=== PATIENT | female | born 1945 | race Caucasian/White ===

== ENCOUNTER 2020-09-21 06:03 | Inpatient (IN) | payer MEDICARE, MEDICAID ==
[~2020-09-21] VITALS: Ht 167.6 cm; Wt 77.1 kg
[~2020-09-21 06:03] MED LIST: ASPI-785 PO
[2020-09-21] MEDS ORDERED: VANCOMYCIN 1 G PREMIX 200 ML IV ONE (06:45)
[2020-09-21] MEDS ORDERED: PIPERACILLIN/TAZ 3.375G PREMIX 50 ML IV ONE (06:45)
[2020-09-21] MEDS ORDERED: DEXAMETHASONE 4MG/ML 1ML VIAL IV ONE (07:15)
[2020-09-21 07:24] LABS: BG BASE EXCESS 2.8 mmol/L (-2.0-2.0); BG CARBOXYHEMOGLOBIN 0.6 % (0.5-1.5); BG DEOXYHEMOGLOBIN 9.5 % (0.0-5.0); BG FRACTION INSPIRED OXYGEN 100; BG HCO3 ACT 25.5 mmol/L (22.0-26.0); BG METHEMOGLOBIN 0.2 % (0.0-1.5); BG OXYGEN SATURATION 90.4 % (92.0-98.5); BG OXYHEMOGLOBIN 89.7 % (94.0-97.0); BG PCO2 33.1 mmHg (35.0-45.0); BG PH 7.504 (7.350-7.450); BG PO2 54.7 mmHg (75.0-100.0); BG SAMPLE SITE RIGHT RADIAL; BG TOTAL HEMOGLOBIN 13.6 g/dL (12.0-18.0); BG VENT MODE MASK - NRB
[2020-09-21 07:26] LABS: HEMATOCRIT. 39.6 % (36.0-48.0); HEMOGLOBIN. 13.8 g/dL (12.0-16.0); MEAN CORPUSCULAR HEMOGLOBIN 33.8 pg (28.0-32.0); MEAN CORPUSCULAR VOLUME 97.1 fL (81.0-99.0); PLATELET 157 x1000/uL (130-400); RED BLOOD CELL COUNT 4.07 mill/uL (4.2-5.4); RED CELL DISTRIBUTION WIDTH 13.3 % (11.6-14.6)
[2020-09-21 07:31] LABS: CHLORIDE 89 mEq/L (98-107)
[2020-09-21 07:40] LABS: D-DIMER 0.72 mg/L FEU (<0.50); PROTHROMBIN TIME 10.8 sec (9.6-11.0)
[2020-09-21 07:43] LABS: CREATINE KINASE 214 IU/L (26-192)
[2020-09-21 08:11] LABS: PLATELET ESTIMATE NORMAL
[2020-09-21] MEDS ORDERED: ONDANSETRON HCL 4MG/2ML INJ IV PRN (09:00)
[2020-09-21] MEDS ORDERED: DIPHENHYDRAMINE 50MG/ML VIAL IV PRN (09:00)
[2020-09-21] MEDS ORDERED: CLONIDINE 0.1MG TABLET PO PRN (09:00)
[2020-09-21] MEDS: ENOXAPARIN 40MG/0.4ML SYR SUBCUT SCH (10:35)
[2020-09-21] MEDS: CEFTRIAXONE 1 G PREMIX 50 ML IV SCH (10:35)
[2020-09-21] MEDS: AZITHROMYCIN 500 MG in DEXT 5% WATER 250 ML IV SCH (10:59)
[2020-09-21 11:19] LABS: CLARITY URINE CLEAR (CLEAR); COLOR URINE YELLOW (YELLOW); KETONES URINE NEGATIVE (NEGATIVE); LEUKOCYTE ESTERASE URINE NEGATIVE (NEGATIVE); NITRITE URINE NEGATIVE (NEGATIVE); OCCULT BLOOD URINE 3+ (NEGATIVE); PH URINE 6.5 (4.5-8.0); PROTEIN URINE TRACE (NEGATIVE); SPECIFIC GRAVITY URINE 1.009 (1.005-1.030); UROBILINOGEN URINE 0.2 E.U./dL (0.2-1.0)
[2020-09-21] MEDS: DEXAMETHASONE 10 MG/ML VIAL IV SCH (15:18)
[2020-09-21] MEDS: PANTOPRAZOLE 40MG DR TABLET PO SCH (15:18)
[2020-09-22 04:12] LABS: HEMATOCRIT. 39.3 % (36.0-48.0); HEMOGLOBIN. 13.4 g/dL (12.0-16.0); MEAN CORPUSCULAR HEMOGLOBIN 33.2 pg (28.0-32.0); MEAN CORPUSCULAR VOLUME 97.5 fL (81.0-99.0); MEAN PLATELET VOLUME 9.9 fl (7.4-10.4); PLATELET 181 x1000/uL (130-400); RED BLOOD CELL COUNT 4.03 mill/uL (4.2-5.4); RED CELL DISTRIBUTION WIDTH 13.4 % (11.6-14.6)
[2020-09-22 04:19] LABS: CHLORIDE 95 mEq/L (98-107)
[2020-09-22 04:27] LABS: HDL CHOLESTEROL 45 mg/dL (40-59); LDL CHOLESTEROL 68 mg/dL (5-100)
[2020-09-22 06:45] LABS: PLATELET ESTIMATE NORMAL
[2020-09-22 08:28] LABS: T4 FREE 1.66 ng/dL (0.76-1.46)
[2020-09-22] MEDS: DEXAMETHASONE 10 MG/ML VIAL IV SCH (09:15)
[2020-09-22] MEDS: CEFTRIAXONE 1 G PREMIX 50 ML IV SCH (09:15)
[2020-09-22] MEDS: ENOXAPARIN 40MG/0.4ML SYR SUBCUT SCH (09:20)
[2020-09-22] MEDS: AZITHROMYCIN 500 MG in DEXT 5% WATER 250 ML IV SCH (09:45)
[2020-09-22] MEDS: ALBUTEROL 6.7GM HFA INHALER ORI SCH ×2 (16:50→22:01)
[2020-09-22] MEDS ORDERED: SODIUM CHLORIDE 0.9% 1,000 ML IV SCH (19:15)
[2020-09-23] MEDS: ALBUTEROL 6.7GM HFA INHALER ORI SCH ×4 (00:27→22:30)
[2020-09-23 00:46] LABS: CREATINE KINASE 163 IU/L (26-192)
[2020-09-23 00:47] LABS: CREATINE KINASE MB FRACTION < 1.0 ng/mL (0.5-3.6)
[2020-09-23 05:41] LABS: HEMATOCRIT. 40.5 % (36.0-48.0); HEMOGLOBIN. 13.8 g/dL (12.0-16.0); MEAN CORPUSCULAR HEMOGLOBIN 33.4 pg (28.0-32.0); MEAN PLATELET VOLUME 9.1 fl (7.4-10.4); PLATELET 215 x1000/uL (130-400); RED BLOOD CELL COUNT 4.13 mill/uL (4.2-5.4); RED CELL DISTRIBUTION WIDTH 13.5 % (11.6-14.6)
[2020-09-23 05:48] LABS: CHLORIDE 98 mEq/L (98-107)
[2020-09-23 06:01] LABS: CREATINE KINASE 168 IU/L (26-192)
[2020-09-23 06:03] LABS: CREATINE KINASE MB FRACTION < 1.0 ng/mL (0.5-3.6)
[2020-09-23] MEDS: PANTOPRAZOLE 40MG DR TABLET PO SCH (06:53)
[2020-09-23] MEDS: CEFTRIAXONE 1 G PREMIX 50 ML IV SCH (09:15)
[2020-09-23] MEDS: DEXAMETHASONE 10 MG/ML VIAL IV SCH (09:15)
[2020-09-23] MEDS: ENOXAPARIN 40MG/0.4ML SYR SUBCUT SCH (09:15)
[2020-09-23] MEDS: AZITHROMYCIN 500 MG in DEXT 5% WATER 250 ML IV SCH (09:45)
[2020-09-23 12:21] LABS: PLATELET ESTIMATE NORMAL
[2020-09-23 15:44] LABS: CLARITY URINE CLOUDY (CLEAR); COLOR URINE YELLOW (YELLOW); KETONES URINE TRACE (NEGATIVE); LEUKOCYTE ESTERASE URINE NEGATIVE (NEGATIVE); NITRITE URINE NEGATIVE (NEGATIVE); OCCULT BLOOD URINE NEGATIVE (NEGATIVE); PROTEIN URINE NEGATIVE (NEGATIVE); SPECIFIC GRAVITY URINE 1.017 (1.005-1.030); UROBILINOGEN URINE 0.2 E.U./dL (0.2-1.0)
[2020-09-23 16:13] LABS: SODIUM URINE RANDOM < 5 mEq/L
[2020-09-23 18:19] LABS: BG BASE EXCESS -0.7 mmol/L (-2.0-2.0); BG CARBOXYHEMOGLOBIN 0.1 % (0.5-1.5); BG DEOXYHEMOGLOBIN 3.3 % (0.0-5.0); BG FRACTION INSPIRED OXYGEN 60; BG HCO3 ACT 21.4 mmol/L (22.0-26.0); BG METHEMOGLOBIN 0.3 % (0.0-1.5); BG OXYGEN SATURATION 96.7 % (92.0-98.5); BG OXYHEMOGLOBIN 96.3 % (94.0-97.0); BG PCO2 28.7 mmHg (35.0-45.0); BG PH 7.491 (7.350-7.450); BG PO2 86.9 mmHg (75.0-100.0); BG TOTAL HEMOGLOBIN 14.1 g/dL (12.0-18.0); BG VENT MODE MASK - BIPAP
[2020-09-24 05:13] LABS: BASOPHILS % 0.2 % (0.0-2.0); HEMATOCRIT. 34.2 % (36.0-48.0); HEMOGLOBIN. 11.7 g/dL (12.0-16.0); LYMPHOCYTES % 8.2 % (20.0-50.0); MEAN CORPUSCULAR HEMOGLOBIN 33.7 pg (28.0-32.0); MEAN CORPUSCULAR VOLUME 98.1 fL (81.0-99.0); MEAN PLATELET VOLUME 8.7 fl (7.4-10.4); MONOCYTES % 7.6 % (2.0-8.0); PLATELET 247 x1000/uL (130-400); RED BLOOD CELL COUNT 3.48 mill/uL (4.2-5.4); RED CELL DISTRIBUTION WIDTH 13.3 % (11.6-14.6)
[2020-09-24 05:20] LABS: CHLORIDE 103 mEq/L (98-107)
[2020-09-24 05:25] LABS: PHOSPHORUS 1.8 mg/dL (2.5-4.9)
[2020-09-24] MEDS: ALBUTEROL 6.7GM HFA INHALER ORI SCH ×4 (08:33→23:59)
[2020-09-24] MEDS: AZITHROMYCIN 500 MG in DEXT 5% WATER 250 ML IV SCH (09:00)
[2020-09-24] MEDS: DEXAMETHASONE 10 MG/ML VIAL IV SCH (09:29)
[2020-09-24] MEDS: CEFTRIAXONE 1 G PREMIX 50 ML IV SCH (09:29)
[2020-09-24] MEDS: ENOXAPARIN 40MG/0.4ML SYR SUBCUT SCH (09:31)
[2020-09-24 16:09] LABS: BG BASE EXCESS 7.5 mmol/L (-2.0-2.0); BG CARBOXYHEMOGLOBIN 0.3 % (0.5-1.5); BG DEOXYHEMOGLOBIN 2.8 % (0.0-5.0); BG FRACTION INSPIRED OXYGEN 60; BG HCO3 ACT 31.1 mmol/L (22.0-26.0); BG METHEMOGLOBIN 0.3 % (0.0-1.5); BG OXYGEN SATURATION 97.2 % (92.0-98.5); BG OXYHEMOGLOBIN 96.6 % (94.0-97.0); BG PCO2 39.9 mmHg (35.0-45.0); BG PO2 90.4 mmHg (75.0-100.0); BG SAMPLE SITE LEFT RADIAL; BG TOTAL HEMOGLOBIN 12.4 g/dL (12.0-18.0); BG VENT MODE MASK - BIPAP
[2020-09-25 04:58] LABS: HEMATOCRIT. 34.3 % (36.0-48.0); HEMOGLOBIN. 11.9 g/dL (12.0-16.0); MEAN CORPUSCULAR HEMOGLOBIN 34.1 pg (28.0-32.0); MEAN CORPUSCULAR VOLUME 98.1 fL (81.0-99.0); RED BLOOD CELL COUNT 3.49 mill/uL (4.2-5.4); RED CELL DISTRIBUTION WIDTH 13.8 % (11.6-14.6)
[2020-09-25 04:59] LABS: CHLORIDE 106 mEq/L (98-107)
[2020-09-25 05:06] LABS: PHOSPHORUS 2.7 mg/dL (2.5-4.9)
[2020-09-25 08:17] LABS: PLATELET ESTIMATE NORMAL
[2020-09-25 08:18] LABS: MEAN PLATELET VOLUME 9.4 fl (7.4-10.4)
[2020-09-25 08:19] LABS: PLATELET 252 x1000/uL (130-400)
[2020-09-25] MEDS: ALBUTEROL 6.7GM HFA INHALER ORI SCH ×2 (08:25→20:05)
[2020-09-25] MEDS: CEFTRIAXONE 1 G PREMIX 50 ML IV SCH (09:00)
[2020-09-25] MEDS: ENOXAPARIN 40MG/0.4ML SYR SUBCUT SCH (09:00)
[2020-09-25] MEDS: DEXAMETHASONE 10 MG/ML VIAL IV SCH (09:00)
[2020-09-25] MEDS: AZITHROMYCIN 500 MG in DEXT 5% WATER 250 ML IV SCH (09:20)
[2020-09-25 10:20] LABS: BG BASE EXCESS 3.5 mmol/L (-2.0-2.0); BG CARBOXYHEMOGLOBIN 0.1 % (0.5-1.5); BG DEOXYHEMOGLOBIN 2.5 % (0.0-5.0); BG FRACTION INSPIRED OXYGEN 60; BG HCO3 ACT 27.1 mmol/L (22.0-26.0); BG METHEMOGLOBIN 0.2 % (0.0-1.5); BG OXYGEN SATURATION 97.5 % (92.0-98.5); BG OXYHEMOGLOBIN 97.2 % (94.0-97.0); BG PCO2 37.3 mmHg (35.0-45.0); BG PH 7.479 (7.350-7.450); BG PO2 100.2 mmHg (75.0-100.0); BG SAMPLE SITE LEFT BRACHIAL; BG TOTAL HEMOGLOBIN 12.2 g/dL (12.0-18.0); BG TOTAL RESPIRATORY RATE 28 b/min; BG VENT MODE MASK - BIPAP
[2020-09-26] VITALS (8 sets, daily range): BP systolic 106–141; BP diastolic 57–78
[2020-09-26] MEDS: ALBUTEROL 6.7GM HFA INHALER ORI SCH ×4 (00:12→20:37)
[2020-09-26 05:42] LABS: HEMATOCRIT. 34.1 % (36.0-48.0); HEMOGLOBIN. 11.7 g/dL (12.0-16.0); MEAN CORPUSCULAR HEMOGLOBIN 33.9 pg (28.0-32.0); MEAN CORPUSCULAR VOLUME 98.2 fL (81.0-99.0); MEAN PLATELET VOLUME 8.3 fl (7.4-10.4); PLATELET 244 x1000/uL (130-400); RED BLOOD CELL COUNT 3.47 mill/uL (4.2-5.4); RED CELL DISTRIBUTION WIDTH 13.9 % (11.6-14.6)
[2020-09-26 05:50] LABS: CHLORIDE 107 mEq/L (98-107)
[2020-09-26 05:55] LABS: PHOSPHORUS 2.6 mg/dL (2.5-4.9)
[2020-09-26 10:22] LABS: PLATELET ESTIMATE NORMAL
[2020-09-26] MEDS: ENOXAPARIN 40MG/0.4ML SYR SUBCUT SCH (14:18)
[2020-09-26] MEDS: DEXAMETHASONE 10 MG/ML VIAL IV SCH (14:18)
[2020-09-27] VITALS (8 sets, daily range): BP systolic 112–129; BP diastolic 53–86
[2020-09-27] MEDS: ALBUTEROL 6.7GM HFA INHALER ORI SCH ×4 (03:07→20:44)
[2020-09-27 07:02] LABS: HEMATOCRIT. 35.5 % (36.0-48.0); HEMOGLOBIN. 11.9 g/dL (12.0-16.0); MEAN CORPUSCULAR HEMOGLOBIN 33.5 pg (28.0-32.0); MEAN CORPUSCULAR VOLUME 99.7 fL (81.0-99.0); MEAN PLATELET VOLUME 8.2 fl (7.4-10.4); PLATELET 279 x1000/uL (130-400); RED BLOOD CELL COUNT 3.57 mill/uL (4.2-5.4)
[2020-09-27 07:03] LABS: CHLORIDE 110 mEq/L (98-107)
[2020-09-27 07:08] LABS: PHOSPHORUS 2.3 mg/dL (2.5-4.9)
[2020-09-27] MEDS ORDERED: POTASSIUM-SODIUM PHOSPHATE POWDER PACKET PO SCH (10:00)
[2020-09-27] MEDS: ENOXAPARIN 40MG/0.4ML SYR SUBCUT SCH (10:33)
[2020-09-27] MEDS: DEXAMETHASONE 10 MG/ML VIAL IV SCH (10:33)
[2020-09-27] MEDS: ACETAMINOPHEN 325MG TABLET PO PRN (17:44)
[2020-09-27 21:31] LABS: PLATELET ESTIMATE NORMAL
[2020-09-28 00:17] VITALS: BP 134/62
[2020-09-28] MEDS: ALBUTEROL 6.7GM HFA INHALER ORI SCH ×4 (00:25→20:48)
[2020-09-28 04:00] VITALS: BP 147/70
[2020-09-28 08:00] VITALS: BP 136/67
[2020-09-28] MEDS: DEXAMETHASONE 10 MG/ML VIAL IV SCH (10:11)
[2020-09-28] MEDS: ENOXAPARIN 40MG/0.4ML SYR SUBCUT SCH (11:21)
[2020-09-28 12:00] VITALS: BP 132/65
[2020-09-28 16:00] VITALS: BP 113/59
[2020-09-28 16:13] LABS: HEMATOCRIT. 32.5 % (36.0-48.0); HEMOGLOBIN. 10.9 g/dL (12.0-16.0); MEAN CORPUSCULAR HEMOGLOBIN 33.1 pg (28.0-32.0); MEAN PLATELET VOLUME 8.4 fl (7.4-10.4); PLATELET 251 x1000/uL (130-400); RED BLOOD CELL COUNT 3.28 mill/uL (4.2-5.4); RED CELL DISTRIBUTION WIDTH 13.9 % (11.6-14.6)
[2020-09-28 16:27] LABS: CHLORIDE 114 mEq/L (98-107)
[2020-09-28 17:01] LABS: PLATELET ESTIMATE NORMAL
[2020-09-28 20:00] VITALS: BP 113/68
[2020-09-29] VITALS (9 sets, daily range): BP systolic 122–156; BP diastolic 46–86
[2020-09-29] MEDS: ALBUTEROL 6.7GM HFA INHALER ORI SCH ×4 (00:50→20:13)
[2020-09-29 07:31] LABS: BG BASE EXCESS 6.3 mmol/L (-2.0-2.0); BG CARBOXYHEMOGLOBIN 0.3 % (0.5-1.5); BG DEOXYHEMOGLOBIN 6.3 % (0.0-5.0); BG FRACTION INSPIRED OXYGEN 80; BG HCO3 ACT 30.1 mmol/L (22.0-26.0); BG METHEMOGLOBIN 0.2 % (0.0-1.5); BG OXYGEN SATURATION 93.7 % (92.0-98.5); BG OXYHEMOGLOBIN 93.2 % (94.0-97.0); BG PCO2 39.9 mmHg (35.0-45.0); BG PH 7.495 (7.350-7.450); BG PO2 62.7 mmHg (75.0-100.0); BG SAMPLE SITE RIGHT RADIAL; BG TOTAL HEMOGLOBIN 12.2 g/dL (12.0-18.0); BG TOTAL RESPIRATORY RATE 21 b/min; BG VENT MODE MASK - BIPAP
[2020-09-29] MEDS: ENOXAPARIN 40MG/0.4ML SYR SUBCUT SCH (08:45)
[2020-09-29] MEDS: DEXAMETHASONE 10 MG/ML VIAL IV SCH (08:46)
[2020-09-29] MEDS ORDERED: FUROSEMIDE 40MG/4ML VIAL IVP NR (11:45)
[2020-09-30] VITALS: BP 142/75
[2020-09-30] MEDS: ALBUTEROL 6.7GM HFA INHALER ORI SCH ×4 (02:17→20:07)
[2020-09-30 04:00] VITALS: BP 138/52
[2020-09-30 07:33] LABS: HEMOGLOBIN. 12.7 g/dL (12.0-16.0); MEAN CORPUSCULAR HEMOGLOBIN 33.3 pg (28.0-32.0); MEAN CORPUSCULAR VOLUME 99.8 fL (81.0-99.0); MEAN PLATELET VOLUME 9.4 fl (7.4-10.4); PLATELET 197 x1000/uL (130-400); RED BLOOD CELL COUNT 3.81 mill/uL (4.2-5.4); RED CELL DISTRIBUTION WIDTH 14.1 % (11.6-14.6)
[2020-09-30 08:00] VITALS: BP 135/77
[2020-09-30 08:13] LABS: CHLORIDE 113 mEq/L (98-107)
[2020-09-30] MEDS: ENOXAPARIN 40MG/0.4ML SYR SUBCUT SCH (08:42)
[2020-09-30] MEDS: DEXAMETHASONE 10 MG/ML VIAL IV SCH (08:42)
[2020-09-30 12:00] VITALS: BP 124/58
[2020-09-30 16:00] VITALS: BP 133/60
[2020-09-30 20:00] VITALS: BP 129/59
[2020-09-30 22:21] LABS: PLATELET ESTIMATE NORMAL
[2020-10-01 00:05] VITALS: BP 128/54
[2020-10-01] MEDS: ALBUTEROL 6.7GM HFA INHALER ORI SCH ×4 (02:57→21:00)
[2020-10-01 04:00] VITALS: BP 104/54
[2020-10-01 08:00] VITALS: BP 130/56
[2020-10-01] MEDS: ENOXAPARIN 40MG/0.4ML SYR SUBCUT SCH (08:47)
[2020-10-01] MEDS ORDERED: THIAMINE HCL 100MG TABLET PO SCH (09:00)
[2020-10-01] MEDS ORDERED: FOLIC ACID 1MG TABLET PO SCH (09:00)
[2020-10-01 12:00] VITALS: BP 131/55
[2020-10-01 14:11] LABS: CHLORIDE 117 mEq/L (98-107)
[2020-10-01 14:17] LABS: PHOSPHORUS 2.5 mg/dL (2.5-4.9)
[2020-10-01 16:00] VITALS: BP 119/65
[2020-10-01] MEDS ORDERED: SODIUM POLYSTYRENE SULFONATE 15 G/60 ML BOT PO NR (18:00)
[2020-10-01 20:00] VITALS: BP 119/67
[2020-10-01] MEDS ORDERED: METOPROLOL TARTRATE 25MG TABLET PO SCH (21:00)
[2020-10-01 22:08] LABS: CHLORIDE 120 mEq/L (98-107)
[2020-10-02] VITALS: BP 123/71
[2020-10-02] MEDS: ALBUTEROL 6.7GM HFA INHALER ORI SCH ×4 (03:00→21:00)
[2020-10-02 05:36] VITALS: BP 103/61
[2020-10-02] MEDS ORDERED: METOPROLOL TARTRATE 50MG TABLET PO SCH (06:00)
[2020-10-02 08:00] VITALS: BP 101/74
[2020-10-02] MEDS ORDERED: SODIUM CHLORIDE 0.45% 500 ML IV ONE (08:15)
[2020-10-02] MEDS: ENOXAPARIN 40MG/0.4ML SYR SUBCUT SCH (08:43)
[2020-10-02 09:23] LABS: BG BASE EXCESS 10.3 mmol/L (-2.0-2.0); BG CARBOXYHEMOGLOBIN 0.7 % (0.5-1.5); BG DEOXYHEMOGLOBIN 7.6 % (0.0-5.0); BG FRACTION INSPIRED OXYGEN 100; BG METHEMOGLOBIN 0.1 % (0.0-1.5); BG OXYGEN SATURATION 92.3 % (92.0-98.5); BG OXYHEMOGLOBIN 91.6 % (94.0-97.0); BG PCO2 37.4 mmHg (35.0-45.0); BG PH 7.564 (7.350-7.450); BG PO2 57.5 mmHg (75.0-100.0); BG SAMPLE SITE RIGHT RADIAL; BG TOTAL HEMOGLOBIN 13.9 g/dL (12.0-18.0); BG VENT MODE MASK - BIPAP
[2020-10-02 12:09] VITALS: BP 125/67
[2020-10-02] MEDS ORDERED: DEXTROSE 50% WATER 50ML SYRINGE IV PRN (15:00)
[2020-10-02] MEDS: BLOOD SUGAR DIAGNOSTIC STRIP TEST SCH ×2 (15:00→21:00)
[2020-10-02] MEDS: DEXTROSE 5% WATER 1,000 ML IV SCH (15:57)
[2020-10-02 16:00] VITALS: BP 100/53
[2020-10-02 20:00] VITALS: BP 112/70
[2020-10-02] MEDS: INSULIN LISPRO 100 UNITS/ML SUBCUT SCH ×2 (20:14→22:39)
[2020-10-02] MEDS: METOPROLOL TARTRATE 50MG TABLET PO SCH (22:38)
[2020-10-02 22:46] LABS: CHLORIDE 118 mEq/L (98-107)
[2020-10-03] VITALS: BP_SYST 124; BP_SYST 141; BP_DIAS 69; BP_DIAS 80
[2020-10-03] MEDS ORDERED: POTASSIUM CHLORIDE 20MEQ/PACKET PO NR (01:00)
[2020-10-03 01:10] LABS: HEMATOCRIT. 36.8 % (36.0-48.0); HEMOGLOBIN. 12.4 g/dL (12.0-16.0); MEAN CORPUSCULAR HEMOGLOBIN 33.8 pg (28.0-32.0); MEAN CORPUSCULAR VOLUME 100.5 fL (81.0-99.0); RED BLOOD CELL COUNT 3.66 mill/uL (4.2-5.4); RED CELL DISTRIBUTION WIDTH 14.4 % (11.6-14.6)
[2020-10-03] MEDS: BLOOD SUGAR DIAGNOSTIC STRIP TEST SCH ×4 (03:40→21:00)
[2020-10-03 04:00] VITALS: BP 129/52
[2020-10-03] MEDS: ALBUTEROL 6.7GM HFA INHALER ORI SCH ×6 (04:00→17:11)
[2020-10-03] MEDS: INSULIN LISPRO 100 UNITS/ML SUBCUT SCH ×4 (04:01→21:00)
[2020-10-03] MEDS: DEXTROSE 5% WATER 1,000 ML IV SCH ×2 (04:02→23:12)
[2020-10-03 08:00] VITALS: BP 73/34
[2020-10-03] MEDS ORDERED: SODIUM CHLORIDE 0.9% 500 ML IV ONE (09:00)
[2020-10-03] MEDS: METOPROLOL TARTRATE 50MG TABLET PO SCH ×2 (09:00→21:00)
[2020-10-03 09:11] LABS: CHLORIDE 119 mEq/L (98-107)
[2020-10-03 09:16] LABS: PHOSPHORUS 2.7 mg/dL (2.5-4.9)
[2020-10-03] MEDS: ENOXAPARIN 40MG/0.4ML SYR SUBCUT SCH (09:56)
[2020-10-03 12:00] VITALS: BP 86/62
[2020-10-03] MEDS ORDERED: ALBUMIN HUMAN 12.5GM/50ML (25%) IV NR (13:30)
[2020-10-03] MEDS: ACETAMINOPHEN 325MG TABLET PO PRN (15:17)
[2020-10-03 16:00] VITALS: BP 94/47
[2020-10-03 17:52] LABS: HEMATOCRIT. 33.3 % (36.0-48.0); MEAN CORPUSCULAR HEMOGLOBIN 33.1 pg (28.0-32.0); MEAN CORPUSCULAR VOLUME 100.5 fL (81.0-99.0); RED BLOOD CELL COUNT 3.32 mill/uL (4.2-5.4); RED CELL DISTRIBUTION WIDTH 14.8 % (11.6-14.6)
[2020-10-03 20:00] VITALS: BP 96/50
[2020-10-04] VITALS (27 sets, daily range): BP systolic 53–165; BP diastolic 37–131
[2020-10-04] MEDS: ACETAMINOPHEN 325MG TABLET PO PRN ×3 (01:23→23:10)
[2020-10-04] MEDS: INSULIN LISPRO 100 UNITS/ML SUBCUT SCH ×4 (03:00→23:10)
[2020-10-04] MEDS: BLOOD SUGAR DIAGNOSTIC STRIP TEST SCH ×4 (03:00→21:00)
[2020-10-04 08:31] LABS: CHLORIDE 120 mEq/L (98-107)
[2020-10-04 08:37] LABS: PHOSPHORUS 2.2 mg/dL (2.5-4.9)
[2020-10-04] MEDS: ENOXAPARIN 40MG/0.4ML SYR SUBCUT SCH (09:51)
[2020-10-04] MEDS ORDERED: SODIUM CHLORIDE 0.9% 500 ML IV ONE (10:00)
[2020-10-04] MEDS: ALBUTEROL 6.7GM HFA INHALER ORI SCH ×2 (10:13→12:28)
[2020-10-04] MEDS ORDERED: POTASSIUM CHLORIDE 20MEQ/PACKET PO NR (10:45)
[2020-10-04] MEDS: METOPROLOL TARTRATE 50MG TABLET PO SCH ×2 (11:48→21:00)
[2020-10-04 13:21] LABS: HEMATOCRIT. 33.3 % (36.0-48.0); HEMOGLOBIN. 10.7 g/dL (12.0-16.0); MEAN CORPUSCULAR HEMOGLOBIN 32.7 pg (28.0-32.0); MEAN CORPUSCULAR VOLUME 102.2 fL (81.0-99.0); MEAN PLATELET VOLUME 12.6 fl (7.4-10.4); RED BLOOD CELL COUNT 3.26 mill/uL (4.2-5.4); RED CELL DISTRIBUTION WIDTH 14.8 % (11.6-14.6)
[2020-10-04 13:54] LABS: PLATELET 5 x1000/uL (130-400)
[2020-10-04 13:58] LABS: NUCLEATED RED BLOOD CELLS 1 /100 WBC
[2020-10-04 13:59] LABS: PLATELET ESTIMATE MARKEDLY DECREASED
[2020-10-04] MEDS ORDERED: LIDOCAINE HCL 1% 20ML VIAL (Pyxis) INJ ONE (14:53)
[2020-10-04] MEDS ORDERED: FENTANYL CITRATE/PF 1,000 MCG in SODIUM CHLORIDE 0.9% 80 ML IV PRN (16:30)
[2020-10-04] MEDS ORDERED: PROPOFOL 10MG/ML 100ML 100 ML IV PRN (16:30)
[2020-10-04] MEDS ORDERED: NOREPINEPHRINE 8MG/250ML PMX 250 ML IV PRN (17:30)
[2020-10-04] MEDS: DEXTROSE 5% WATER 1,000 ML IV SCH (18:00)
[2020-10-04] MEDS: NOREPINEPHRINE 8 MG in DEXTROSE 5% WATER 250 ML IV PRN ×2 (18:13→22:10)
[2020-10-04 19:31] LABS: BG BASE EXCESS 7.4 mmol/L (-2.0-2.0); BG CARBOXYHEMOGLOBIN 1.1 % (0.5-1.5); BG DEOXYHEMOGLOBIN 11.5 % (0.0-5.0); BG FRACTION INSPIRED OXYGEN 100; BG HCO3 ACT 32.8 mmol/L (22.0-26.0); BG METHEMOGLOBIN 0.2 % (0.0-1.5); BG OXYGEN SATURATION 88.3 % (92.0-98.5); BG OXYHEMOGLOBIN 87.2 % (94.0-97.0); BG PCO2 49.6 mmHg (35.0-45.0); BG PH 7.438 (7.350-7.450); BG PO2 53.3 mmHg (75.0-100.0); BG SAMPLE SITE RIGHT RADIAL; BG TOTAL HEMOGLOBIN 12.8 g/dL (12.0-18.0); BG VENT MODE VENT - APRV
[2020-10-04 21:11] LABS: HEMOGLOBIN. 10.6 g/dL (12.0-16.0); MEAN CORPUSCULAR HEMOGLOBIN 32.7 pg (28.0-32.0); MEAN CORPUSCULAR VOLUME 102.3 fL (81.0-99.0); RED BLOOD CELL COUNT 3.23 mill/uL (4.2-5.4); RED CELL DISTRIBUTION WIDTH 14.9 % (11.6-14.6)
[2020-10-04] MEDS: MIDAZOLAM HCL 100 MG in DEXT 5% WATER 80 ML IV PRN (21:21)
[2020-10-04 21:26] LABS: CHLORIDE 120 mEq/L (98-107)
[2020-10-04 21:33] LABS: MEAN PLATELET VOLUME 12.7 fl (7.4-10.4)
[2020-10-04 21:35] LABS: PLATELET 5 x1000/uL (130-400)
[2020-10-04 21:36] LABS: PLATELET ESTIMATE MARKEDLY DECREASED
[2020-10-04] MEDS ORDERED: ACETAMINOPHEN 650MG/20.3ML UDC PO PRN (23:00)
[2020-10-04] MEDS: INSULIN GLARGINE UD 100 UNITS/ML SYR SUBCUT SCH (23:10)
[2020-10-05] VITALS (98 sets, daily range): BP systolic 31–150; BP diastolic 17–96
[2020-10-05] MEDS: FENTANYL CITRATE/PF 2,500 MCG in SODIUM CHLORIDE 0.9% 200 ML IV PRN ×3 (00:15→22:06)
[2020-10-05] MEDS: NOREPINEPHRINE 8 MG in DEXTROSE 5% WATER 250 ML IV PRN ×3 (00:23→09:00)
[2020-10-05] MEDS: ALBUTEROL 6.7GM HFA INHALER ORI SCH ×2 (00:53→08:26)
[2020-10-05] MEDS: DEXTROSE 5% WATER 1,000 ML IV SCH ×3 (01:58→23:45)
[2020-10-05] MEDS: PHENYLEPHRINE 50 MG in DEXT 5% WATER 245 ML IV PRN ×3 (01:59→08:59)
[2020-10-05 05:18] LABS: BASOPHILS % 0.1 % (0.0-2.0); EOSINOPHILS % 0.6 % (0.0-5.0); HEMATOCRIT. 32.9 % (36.0-48.0); HEMOGLOBIN. 10.6 g/dL (12.0-16.0); LYMPHOCYTES % 11.8 % (20.0-50.0); MEAN CORPUSCULAR HEMOGLOBIN 33.1 pg (28.0-32.0); MEAN CORPUSCULAR VOLUME 102.9 fL (81.0-99.0); MEAN PLATELET VOLUME 10.4 fl (7.4-10.4); MONOCYTES % 2.7 % (2.0-8.0); NEUTROPHILS % 84.8 % (40.0-76.0); RED BLOOD CELL COUNT 3.19 mill/uL (4.2-5.4); RED CELL DISTRIBUTION WIDTH 15.1 % (11.6-14.6)
[2020-10-05 05:31] LABS: CHLORIDE 112 mEq/L (98-107)
[2020-10-05 05:37] LABS: PHOSPHORUS 2.3 mg/dL (2.5-4.9)
[2020-10-05 05:53] LABS: PLATELET 6 x1000/uL (130-400)
[2020-10-05] MEDS: BLOOD SUGAR DIAGNOSTIC STRIP TEST SCH ×3 (05:56→18:57)
[2020-10-05] MEDS: INSULIN LISPRO 100 UNITS/ML SUBCUT SCH ×3 (05:57→17:25)
[2020-10-05] MEDS: MIDAZOLAM HCL 100 MG in DEXT 5% WATER 80 ML IV PRN (06:42)
[2020-10-05] MEDS: METOPROLOL TARTRATE 50MG TABLET PO SCH (07:46)
[2020-10-05] MEDS: INSULIN GLARGINE UD 100 UNITS/ML SYR SUBCUT SCH ×2 (09:40→22:16)
[2020-10-05] MEDS ORDERED: SODIUM CHLORIDE 0.9% 500 ML IV ONE (10:00)
[2020-10-05 10:19] LABS: BG BASE EXCESS 3.2 mmol/L (-2.0-2.0); BG CARBOXYHEMOGLOBIN 0.8 % (0.5-1.5); BG DEOXYHEMOGLOBIN 6.4 % (0.0-5.0); BG FRACTION INSPIRED OXYGEN 100; BG HCO3 ACT 29.4 mmol/L (22.0-26.0); BG METHEMOGLOBIN 0.3 % (0.0-1.5); BG OXYGEN SATURATION 93.5 % (92.0-98.5); BG OXYHEMOGLOBIN 92.5 % (94.0-97.0); BG PH 7.362 (7.350-7.450); BG PO2 69.1 mmHg (75.0-100.0); BG SAMPLE SITE RIGHT BRACHIAL; BG TOTAL HEMOGLOBIN 10.8 g/dL (12.0-18.0); BG VENT MODE VENT - PRVC
[2020-10-05] MEDS: NOREPINEPHRINE 32 MG in DEXT 5% WATER 218 ML IV PRN (12:15)
[2020-10-05] MEDS: PHENYLEPHRINE 100 MG in DEXT 5% WATER 240 ML IV PRN (12:44)
[2020-10-05] MEDS ORDERED: IPRATROPIUM/ALBUTEROL 0.5-3(2.5)MG/3ML NEB HHN PRN (14:00)
[2020-10-05] MEDS: IPRATROPIUM/ALBUTEROL 0.5-3(2.5)MG/3ML NEB HHN SCH ×3 (14:35→20:48)
[2020-10-05] MEDS: VASOPRESSIN 20 UNIT in SODIUM CHLORIDE 0.9% 99 ML IV PRN ×2 (15:19→22:04)
[2020-10-06] VITALS (71 sets, daily range): BP systolic 55–168; BP diastolic 21–78
[2020-10-06] MEDS: IPRATROPIUM/ALBUTEROL 0.5-3(2.5)MG/3ML NEB HHN SCH ×4 (00:22→11:36)
[2020-10-06] MEDS: BLOOD SUGAR DIAGNOSTIC STRIP TEST SCH ×3 (00:48→12:26)
[2020-10-06] MEDS: PHENYLEPHRINE 100 MG in DEXT 5% WATER 240 ML IV PRN ×3 (02:04→15:12)
[2020-10-06] MEDS: NOREPINEPHRINE 32 MG in DEXT 5% WATER 218 ML IV PRN ×2 (02:36→10:22)
[2020-10-06] MEDS: VASOPRESSIN 20 UNIT in SODIUM CHLORIDE 0.9% 99 ML IV PRN ×2 (04:02→12:28)
[2020-10-06 05:29] LABS: BASOPHILS % 0.2 % (0.0-2.0); EOSINOPHILS % 0.5 % (0.0-5.0); HEMATOCRIT. 27.3 % (36.0-48.0); HEMOGLOBIN. 8.6 g/dL (12.0-16.0); LYMPHOCYTES % 7.1 % (20.0-50.0); MEAN CORPUSCULAR HEMOGLOBIN 32.6 pg (28.0-32.0); MEAN CORPUSCULAR VOLUME 103.5 fL (81.0-99.0); MEAN PLATELET VOLUME 9.9 fl (7.4-10.4); MONOCYTES % 2.9 % (2.0-8.0); NEUTROPHILS % 89.3 % (40.0-76.0); RED BLOOD CELL COUNT 2.64 mill/uL (4.2-5.4); RED CELL DISTRIBUTION WIDTH 14.1 % (11.6-14.6)
[2020-10-06] MEDS: INSULIN LISPRO 100 UNITS/ML SUBCUT SCH ×3 (05:32→12:41)
[2020-10-06 05:34] LABS: CHLORIDE 97 mEq/L (98-107)
[2020-10-06 05:42] LABS: PHOSPHORUS 5.1 mg/dL (2.5-4.9)
[2020-10-06 05:48] LABS: PLATELET 7 x1000/uL (130-400)
[2020-10-06] MEDS ORDERED: SODIUM CHLORIDE 0.9% 500 ML IV ONE ×2 (09:00)
[2020-10-06 09:29] LABS: BG BASE EXCESS -3.2 mmol/L (-2.0-2.0); BG CARBOXYHEMOGLOBIN 1.1 % (0.5-1.5); BG DEOXYHEMOGLOBIN 12.4 % (0.0-5.0); BG HCO3 ACT 23.7 mmol/L (22.0-26.0); BG METHEMOGLOBIN 0.4 % (0.0-1.5); BG OXYGEN SATURATION 87.4 % (92.0-98.5); BG OXYHEMOGLOBIN 86.1 % (94.0-97.0); BG PCO2 51.5 mmHg (35.0-45.0); BG PO2 53.8 mmHg (75.0-100.0); BG SAMPLE SITE LEFT BRACHIAL; BG TOTAL HEMOGLOBIN 9.1 g/dL (12.0-18.0); BG TOTAL RESPIRATORY RATE 26 b/min
[2020-10-06] MEDS: INSULIN GLARGINE UD 100 UNITS/ML SYR SUBCUT SCH (10:44)
[2020-10-06] MEDS ORDERED: MORPHINE SULFATE 250 MG in DEXT 5% WATER 240 ML IV PRN (15:30)
[2020-10-06] MEDS ORDERED: CEFEPIME 2,000 MG in DEXT 5% WATER 100 ML IV SCH (16:00)
== END 2020-10-06 17:20 | disposition expired | DRG 720 ==
LOC: ER 06:03 → EDBEDREQTM 07:31 → EDBEDREQ 07:31 → EDBEDREQSVC 07:31 → MICUSO 08:35 → EDBEDREQTM 08:37 → EDBEDREQ 08:37 → EDBEDREQSVC 10:49 → 7EST 09-26 08:47 → MICUSO 10-04 17:25
PROVIDERS: ADMIT Internal Medicine; ATTEND Internal Medicine
PROC: XW033E5 Introduction of Remdesivir Anti-infective into Peripheral Vein, Percutaneous Approach, New Technology Group 5 (ICD-10-PCS; 2020-09-21)
PROC: 5A09457 Assistance with Respiratory Ventilation, 24-96 Consecutive Hours, Continuous Positive Airway Pressure (ICD-10-PCS; 2020-09-21)
PROC: 5A09457 Assistance with Respiratory Ventilation, 24-96 Consecutive Hours, Continuous Positive Airway Pressure (ICD-10-PCS; 2020-09-23)
PROC: XW13325 Transfusion of Convalescent Plasma (Nonautologous) into Peripheral Vein, Percutaneous Approach, New Technology Group 5 (ICD-10-PCS; principal; 2020-09-26)
PROC: 5A09557 Assistance with Respiratory Ventilation, Greater than 96 Consecutive Hours, Continuous Positive Airway Pressure (ICD-10-PCS; 2020-09-26)
PROC: 5A1945Z Respiratory Ventilation, 24-96 Consecutive Hours (ICD-10-PCS; 2020-10-04)
PROC: 0BH17EZ Insertion of Endotracheal Airway into Trachea, Via Natural or Artificial Opening (ICD-10-PCS; 2020-10-04)
PROC: 05HY33Z Insertion of Infusion Device into Upper Vein, Percutaneous Approach (ICD-10-PCS; 2020-10-04)
PROC: B54NZZA Ultrasonography of Left Upper Extremity Veins, Guidance (ICD-10-PCS; 2020-10-04)
PROC: 30233R1 Transfusion of Nonautologous Platelets into Peripheral Vein, Percutaneous Approach (ICD-10-PCS; 2020-10-06)
DX: A41.89 Other specified sepsis (principal); U07.1 COVID-19; I21.4 Non-ST elevation (NSTEMI) myocardial infarction; J96.01 Acute respiratory failure with hypoxia; R65.21 Severe sepsis with septic shock; J12.89 Other viral pneumonia; E87.1 Hypo-osmolality and hyponatremia; E43 Unspecified severe protein-calorie malnutrition; F01.50 Vascular dementia, unspecified severity, without behavioral disturbance, psychotic disturbance, mood disturbance, and anxiety; E78.5 Hyperlipidemia, unspecified; I11.9 Hypertensive heart disease without heart failure; R13.10 Dysphagia, unspecified; E11.65 Type 2 diabetes mellitus with hyperglycemia; M26.09 Other specified anomalies of jaw size; R74.01 Elevation of levels of liver transaminase levels; E87.3 Alkalosis; Z66 Do not resuscitate; D65 Disseminated intravascular coagulation [defibrination syndrome]; I69.351 Hemiplegia and hemiparesis following cerebral infarction affecting right dominant side; E87.6 Hypokalemia; E87.0 Hyperosmolality and hypernatremia; I69.320 Aphasia following cerebral infarction; Z78.9 Other specified health status; Z93.1 Gastrostomy status; Z79.899 Other long term (current) drug therapy; Z79.82 Long term (current) use of aspirin
CPT/HCPCS: 36415; 36600; 71045; 76937; 80048; 80053; 80061; 81003; 82375; 82533; 82550; 82553; 82728; 82805; 82962; 83036; 83605; 83615; 83735; 83880; 83935; 84100; 84134; 84145; 84300; 84439; 84443; 84484; 85025; 85049; 85362; 85379; 85384; 86022; 86140; 86850; 86900; 86927; 87070; 87635; 87804; 93005; 93970; 94640; 94660; 99291; C1725; C1893; J0456; J0692; J0696; J1100; J1650; J1815; J1940; J2250; J2370; J2543; J2704; J3010; J3370; J3490; J7040; J7050; J7060; J7070; P9017; P9034; P9047